=== PATIENT | female | born 1980 | race Hispanic/Latino ===

== ENCOUNTER 2021-12-30 10:31 | Day surgery (SDC) | payer BC ==
[2021-12-24 13:24] VITALS: BMI 27.3
[2021-12-25 15:38] LABS: Hemoglobin 9.9 g/dL (12.0-15.5); Mean Corpuscular HGB CONC 30.9 g/dL (32.0-36.0); Mean Corpuscular Hemoglobin 24.6 pg (27.0-33.0); Mean Corpuscular Volume 79.4 fl (81.6-98.3); Mean Platelet Volume 11.4 fl (7.4-10.4); Platelet Count 293 10x3/uL (150-450); RBC Distribution Width 14.8 % (11.5-14.5); Red Blood Cell (RBC) Count 4.03 10x6/uL (3.90-5.03); White Blood Cell (WBC) Count 8.2 10x3/uL (3.5-10.5)
[2021-12-25 15:58] LABS: BHCG - Serum Negative (NEGATIVE); Pregs Control Background? CLEAR/WHITE (CLR/WHITE); Pregs Control Bar Appear? YES (CONTROL BAR)
[2021-12-30] MEDS ORDERED: CeleCOXIB 100 MG CAP ONE (10:42)
[2021-12-30] MEDS ORDERED: CEFAZOLIN 2 GM VIAL ONE (11:30)
[2021-12-30] MEDS ORDERED: Lidocaine 1% PF 5 ML VIAL ONE (11:36)
[2021-12-30] MEDS ORDERED: Fentanyl 100 MCG/2 ML VIAL ONE (11:36)
[2021-12-30] MEDS ORDERED: Ondansetron PF 4 MG/2 ML Vial ONE (11:36)
[2021-12-30] MEDS ORDERED: PROPOFOL 20 ML ONE (11:36)
[2021-12-30] MEDS ORDERED: Dexamethasone 4 mg/ml Vial ONE (11:36)
== END 2021-12-30 13:45 | disposition home or self-care (01) ==
LOC: CSHSDC 10:31
PROVIDERS: ATTEND Obstetrics & Gynecology
PROC: 0UB98ZZ Excision of Uterus, Via Natural or Artificial Opening Endoscopic (ICD-10-PCS; principal; 2021-12-30)
DX: N84.0 Polyp of corpus uteri (principal); N92.0 Excessive and frequent menstruation with regular cycle; R18.8 Other ascites; Z79.899 Other long term (current) drug therapy; Z20.822 Contact with and (suspected) exposure to COVID-19; Z90.49 Acquired absence of other specified parts of digestive tract
CPT/HCPCS: 36415; 84703; 85027; 86850; 86900; 86901; 87811; 88305; J0690; J1100; J2405; J2704; J3010

== ENCOUNTER 2022-02-19 16:00 | Outpatient (CLI) | payer BC ==
[2022-02-19 16:57] LABS: Hemoglobin 10.2 g/dL (12.0-15.5); Mean Corpuscular Hemoglobin 24.8 pg (27.0-33.0); Mean Corpuscular Volume 79.9 fl (81.6-98.3); Platelet Count 335 10x3/uL (150-450); RBC Distribution Width 15.2 % (11.5-14.5); Red Blood Cell (RBC) Count 4.12 10x6/uL (3.90-5.03); White Blood Cell (WBC) Count 8.1 10x3/uL (3.5-10.5)
[2022-02-19 17:09] LABS: BHCG - Serum Negative (NEGATIVE); Pregs Control Background? CLEAR/WHITE (CLR/WHITE); Pregs Control Bar Appear? YES (CONTROL BAR)
== END 2022-02-19 16:01 | disposition home or self-care (01) ==
LOC: CSHLAB 16:00
PROVIDERS: ATTEND Obstetrics & Gynecology
DX: Z01.812 Encounter for preprocedural laboratory examination (principal); R97.0 Elevated carcinoembryonic antigen [CEA]
CPT/HCPCS: 84703; 85027; 86850; 86900; 86901

== ENCOUNTER 2022-02-24 11:37 | Day surgery (SDC) | payer BC ==
[2022-02-23 08:59] VITALS: BMI 27.8
[2022-02-24] MEDS ORDERED: CeleCOXIB 100 MG CAP ONE (12:08)
[2022-02-24] MEDS ORDERED: Lidocaine 2% PF 5 ML VIAL ONE (13:36)
[2022-02-24] MEDS ORDERED: Glycopyrrolate 0.2 MG/ML 5 ML SYRINGE ONE (13:36)
[2022-02-24] MEDS ORDERED: Ketorolac Tromethamine 30 MG/ML VIAL ONE (13:36)
[2022-02-24] MEDS ORDERED: PROPOFOL 20 ML ONE (13:36)
[2022-02-24] MEDS ORDERED: Dexamethasone 4 mg/ml Vial ONE (13:36)
[2022-02-24] MEDS ORDERED: Ondansetron PF 4 MG/2 ML Vial ONE (13:36)
[2022-02-24] MEDS ORDERED: Midazolam HCl 2 mg/2 ml Vial ONE (13:36)
[2022-02-24] MEDS ORDERED: Rocuronium Bromide 10 MG/ML (10ML VIAL) ONE (13:36)
[2022-02-24] MEDS ORDERED: Fentanyl 100 MCG/2 ML VIAL ONE (13:37)
[2022-02-24] MEDS ORDERED: EPINEPHrine 1 MG/ML AMP ONE (13:45)
[2022-02-24] MEDS ORDERED: Methylene Blue 50 MG/10 ML AMPUL ONE (13:46)
[2022-02-24] MEDS ORDERED: Bupivacaine PF 0.5% 30 ML VIAL ONE (13:46)
[2022-02-24] MEDS ORDERED: CEFAZOLIN 2 GM VIAL ONE (14:02)
== END 2022-02-24 17:05 | disposition home or self-care (01) ==
LOC: CSHSDC 11:37
PROVIDERS: ATTEND Obstetrics & Gynecology
PROC: 0UT74ZZ Resection of Bilateral Fallopian Tubes, Percutaneous Endoscopic Approach (ICD-10-PCS; principal; 2022-02-24)
PROC: 0DBW4ZZ Excision of Peritoneum, Percutaneous Endoscopic Approach (ICD-10-PCS; principal; 2022-02-24)
DX: N80.30 Endometriosis of pelvic peritoneum, unspecified (principal); N80.529 Endometriosis of the sigmoid colon, unspecified depth; N80.559 Endometriosis of other parts of the colon, unspecified depth; R97.1 Elevated cancer antigen 125 [CA 125]; Z90.49 Acquired absence of other specified parts of digestive tract
CPT/HCPCS: 88112; 88305; 88342; C1776; J0171; J1100; J1885; J2001; J2250; J2405; J2704; J3010; Q9968; S0020